=== PATIENT | male | born 1985 | race Two or more races ===

== ENCOUNTER 2019-03-02 12:17 | Emergency (ER) | payer SELFPAY ==
[2019-03-02 12:28] VITALS: BP 122/77; PULSE 69; TEMP 97.7; BMI 28.2
[2019-03-02] MEDS ORDERED: KETOROLAC TROMETHAMINE 30 MG/1 ML VIAL IVPUSH ONE (13:03)
[2019-03-02] MEDS ORDERED: SODIUM CHLORIDE 1,000 ML IV STA (13:03)
[2019-03-02] MEDS ORDERED: KETOROLAC TROMETHAMINE 30 MG/1 ML VIAL ONE (13:06)
--- NOTE | 2019-03-02 13:10 | PDOC ---
History of Present Illness - General History Source: Patient Exam Limitations: No Limitations <Sarah Thomas - Last Filed: 03/02/19 17:45> <Scottie Granados - Last Filed: 03/04/19 08:04> - General Chief Complaint: Pain Stated Complaint: KIDNEY PAIN Time Seen by Provider: 03/02/19 12:57 Past History - Past Medical History COPD: No - Psycho Social/Smoking Cessation Hx Smoking History: Never smoked <WilliamEllieSarah - Last Filed: 03/02/19 17:45> <Scottie Granados - Last Filed: 03/04/19 08:04> - Past Medical History Allergies/Adverse Reactions: Allergies Allergy/AdvReac Type Severity Reaction Status Date / Time No Known Allergies Allergy Verified 03/02/19 12:28 Home Medications: Ambulatory Orders Oxycodone HCl/Acetaminophen [Percocet 5-325 mg Tablet] 1 tab PO Q6H PRN #20 tablet MDD 4 03/02/19 Tamsulosin HCl [Flomax] 0.4 mg PO DAILY #7 capsule 03/02/19 *Physical Exam - Vital Signs Last Vital Signs Temp Pulse Resp BP Pulse Ox 97.7 F 69 18 122/77 99 03/02/19 12:24 03/02/19 12:24 03/02/19 12:24 03/02/19 12:24 03/02/19 12:24 - Physical Exam General Appearance: Yes: Mild Distress (due to pain) Respiratory/Chest: positive: Lungs Clear, Normal Breath Sounds. negative: Respiratory Distress Cardiovascular: positive: Regular Rhythm, Regular Rate, S1, S2. negative: Murmur Gastrointestinal/Abdominal: positive: Tender (mild along LLQ), Soft. negative: Distended, Guarding, Rebound Musculoskeletal: positive: CVA Tenderness (L) (mild) Integumentary: positive: Normal Color Neurologic: positive: Alert, Normal Mood/Affect <William,Sarah - Last Filed: 03/02/19 17:45> - Vital Signs Last Vital Signs Temp Pulse Resp BP Pulse Ox 97.7 F 69 18 122/77 99 03/02/19 12:24 03/02/19 12:24 03/02/19 12:24 03/02/19 12:24 03/02/19 12:24 <Scottie Granados - Last Filed: 03/04/19 08:04> ED Treatment Course - LABORATORY CBC & Chemistry Diagram: 03/02/19 13:00 03/02/19 13:00 - RADIOLOGY Radiology Studies Ordered: Category Date Time Status SPIRAL- RENAL-STONE CT [CT] Stat CT Scan 03/02/19 13:03 Ordered <Sarah Thomas - Last Filed: 03/02/19 17:45> - LABORATORY CBC & Chemistry Diagram: 03/02/19 13:00 03/02/19 13:00 - ADDITIONAL ORDERS Additional order review: 03/02/19 13:15 Urine Culture - Final Urine - Urine Clean Catch NO GROWTH OBTAINED 03/02/19 13:00 RBC 5.06 MCV 93.0 MCHC 34.0 RDW 13.3 MPV 8.8 Neutrophils % 66.0 Lymphocytes % 25.9 Monocytes % 6.3 Eosinophils % 1.6 Basophils % 0.2 - Medications Given in the ED: ED Medications Discontinued Medications Generic Name Dose Route Start Last Admin Trade Name Freq PRN Reason Stop Dose Admin Sodium Chloride 1,000 mls @ 1,000 mls/hr 03/02/19 13:03 03/02/19 13:05 Normal Saline - IV 03/02/19 14:02 1,000 mls/hr ASDIR STA Administration Ketorolac Tromethamine 30 mg 03/02/19 13:03 03/02/19 13:05 Toradol Injection - IVPUSH 03/02/19 13:04 30 mg ONCE ONE Administration <Scottie Granados - Last Filed: 03/04/19 08:04> Medical Decision Making - Medical Decision Making 34 y/o M hx of kidney stones presents with L flank/LLQ pain from today, which feels similar to his prior kidney stones. Also with slight difficulty voiding. Denies fever, sob, cp, n/v/d, dysuria, hematuria. Denies prior surgeries. Likely kidney stones Plan: Labs, IVF, Toradol, spiral CT, reassess 03/02/19 13:[address] read as negative However, on my read, noted with calcification along LLQ D/W radiologist - believes likely phlebolith and unlikely kidney stone given no hydro noted on imaging (size of phlebolith is 8 mm) D/W urology, Dr. Styles - recommends CT urogram to make sure it is not kidney stone 03/02/19 15:34 CT urogram confirms kidney stone at L UVJ 0.6x0.4 cm in size D/W urology, Dr. Littlejohn, who states patient can f/u outpatient with him, recommends flomax as well Patient currently comfortable, given urine strainer Patient stable for dc 03/02/19 17:45 <Sarah Thomas - Last Filed: 03/02/19 17:45> - Medical Decision Making The patient was seen and evaluated in conjunction with CHAY Thomas under my direct supervision, ancillary studies were reviewed. I agree with the plan as outlined by CHAY Thomas . <Scottie Granados - Last Filed: 03/04/19 08:04> Discharge - Discharge Information Problems reviewed: Yes - Admission No - Additional Discharge Information Prescription Drug Monitoring Program (I-STOP) results: I-STOP not reviewed <Sarah Thomas - Last Filed: 03/02/19 17:45> <Scottie Granados - Last Filed: 03/04/19 08:04> - Discharge Information Clinical Impression/Diagnosis: Urolithiasis Qualifiers: Urinary calculus location: ureter Qualified Code(s): N20.1 - Calculus of ureter Condition: Stable Disposition: HOME - Additional Discharge Information Prescriptions: Oxycodone HCl/Acetaminophen [Percocet 5-325 mg Tablet] 1 tab PO Q6H PRN #20 tablet MDD 4 PRN Reason: Severe Pain Tamsulosin HCl [Flomax] 0.4 mg PO DAILY #7 capsule - Follow up/Referral Referrals: Dave Littlejohn MD [Staff Physician] - Call tomorrow - Patient Discharge Instructions Patient Printed Discharge Instructions: DI for Kidney Stones Additional Instructions: Thank you for choosing [facility]. It was a pleasure taking care of you. You may take Motrin 600 mg every 6 hours by mouth as needed for mild to moderate pain. Take Motrin with food. For severe pain, you may take Percocet. This medication can make you constipated for which you may take over the counter Senna tablets as needed. This medication can also make you drowsy so please be cautious with driving or performing heavy physical work. Take Flomax daily Drink plenty of fluids - at least 2-3L daily You were given urine strainer to possibly catch the stone You were referred to urologist. Please follow-up tomorrow Return to the Emergency Department if your symptoms worsen or persist, you have fever, severe abdominal pain, vomiting or other concerning symptoms. Keyla por elegir el [facility]. Fue un placer cuidar de ti. Puede marcus Motrin 600 mg cada 6 horas por va oral segn sea necesario para el dolor leve a moderado. Neeru Motrin con comida. Para el dolor intenso, puede marcus Percocet. Miranda medicamento puede provocarle estreimiento, por lo que puede marcus tabletas Senna de venta ludivina segn sea necesario. Miranda medicamento tambin puede causar somnolencia, as que tenga cuidado al conducir o realizar trabajos fsicos pesados. [place] Flomax diariamente Leslie muchos lquidos, al menos 2-3L al da Le dieron un colador de orina para posiblemente atrapar el clculo Lo derivaron al urlogo. Por favor jorge un seguimiento maana Regrese al departamento de emergencias si tanya sntomas empeoran o persisten, tiene fiebre, dolor abdominal intenso, vmitos u otros sntomas preocupantes. Print Language: MONGOLIAN
[2019-03-02 13:33] LABS: BASO % 0.2 % (0-2.0); EOS % 1.6 % (0-4.5); HEMATOCRIT 47.1 % (35.4-49); LYMPH % 25.9 % (8-40); MCH 31.6 pg (25.7-33.7); MEAN PLT VOLUME 8.8 fl (7.5-11.1); MONO % 6.3 % (3.8-10.2); PLATELET COUNT 152 K/MM3 (134-434); RBC 5.06 M/mm3 (4.00-5.60); RDW 13.3 % (11.9-15.9); WHITE BLOOD COUNT 6.5 K/mm3 (4.0-10.0)
[2019-03-02 13:37] LABS: EPI CELLS 0.2 /HPF (0-5/HPF); HYALINE CASTS 0 /lpf (0-8); PH,URINE 5.5 (5.0-8.0); URINE APPEARANCE CLEAR; URINE BACTERIA 1.7 /hpf (NEGATIVE); URINE BILIRUBIN NEGATIVE (NEGATIVE); URINE COLOR YELLOW; URINE GLUCOSE (UA) NEGATIVE (NEGATIVE); URINE KETONE NEGATIVE (NEGATIVE); URINE LEUK ESTERASE NEGATIVE (NEGATIVE); URINE NITRITE NEGATIVE (NEGATIVE); URINE PROTEIN NEGATIVE (NEGATIVE); URINE RBC 0 /hpf (0-4); URINE UROBILINOGEN 0.2 mg/dL (0.2-1.0); URINE WBC 1 /hpf (0-5)
[2019-03-02 14:11] LABS: BILIRUBIN,TOTAL 0.3 mg/dL (0.2-1); BLOOD UREA NITROGEN 16.8 mg/dL (7-18); CALCIUM 9.2 mg/dL (8.5-10.1); CREATININE 1.1 mg/dL (0.55-1.3); POTASSIUM 4.7 mmol/L (3.5-5.1); TOT PROT 6.9 g/dl (6.4-8.2)
== END 2019-03-02 17:58 | disposition home or self-care (01) ==
LOC: JER 12:17
PROC: 3E0333Z Introduction of Anti-inflammatory into Peripheral Vein, Percutaneous Approach (ICD-10-PCS; principal; 2019-03-02)
DX: N20.1 Calculus of ureter (principal); Z87.442 Personal history of urinary calculi
CPT/HCPCS: 36415; 74176-TC; 74178-TC; 80053; 81003; 85025; 87086; 99283-25; J7030

== ENCOUNTER 2022-02-26 00:08 | Emergency (ER) | payer OTHER ==
[2022-02-26 00:34] VITALS: BMI 27.8
[2022-02-26] MEDS ORDERED: MAG HYDROX/AL HYDROX/SIMETH 30 ML UNIT-DOSE CUP PO ONE (00:36)
[2022-02-26] MEDS ORDERED: ACETAMINOPHEN 1000 MG/100 ML BAG IVPB ONE (00:36)
[2022-02-26] MEDS ORDERED: SODIUM CHLORIDE 0.9% 500 ML INFUS.BAG IV ONE (00:36)
[2022-02-26] MEDS ORDERED: FAMOTIDINE 20 MG/50 ML IVPB 20 MG/50 ML MG IVPB ONE ×3 (00:36→01:07)
[2022-02-26] MEDS ORDERED: HALOPERIDOL LACTATE 5 MG/ML IM ONE ×2 (01:01→01:06)
[2022-02-26] MEDS ORDERED: ACETAMINOPHEN INJECTION 100 ML IVPB ONE (01:06)
[2022-02-26] MEDS ORDERED: MAG HYDROX/AL HYDROX/SIMETH 30 ML UNIT-DOSE CUP ONE (01:06)
[2022-02-26] MEDS ORDERED: ONDANSETRON 4 MG/2 ML VIAL ONE (01:28)
[2022-02-26 01:49] LABS: BASO % 0.3 % (0-2.0); EOS % 0.5 % (0-4.5); HEMATOCRIT 47.9 % (35.4-49); HEMOGLOBIN 16.4 GM/dL (11.7-16.9); LYMPH % 14.1 % (8-40); MCH 32.7 pg (25.7-33.7); MCHC 34.3 g/dl (32.0-35.9); MEAN CELL VOLUME 95.3 fl (80-96); MEAN PLT VOLUME 9.3 fl (7.5-11.1); MONO % 4.7 % (3.8-10.2); NEUT % 80.4 % (42.8-82.8); PLATELET COUNT 155 10^3/uL (134-434); RBC 5.03 M/mm3 (4.00-5.60); RDW 13.9 % (11.9-15.9); WHITE BLOOD COUNT 9.6 K/mm3 (4.0-10.0)
[2022-02-26 02:28] LABS: CALCIUM 8.8 mg/dL (8.5-10.1)
[2022-02-26 02:29] LABS: ALBUMIN 3.9 g/dl (3.4-5.0); BLOOD UREA NITROGEN 13.4 mg/dL (7-18)
[2022-02-26 02:32] LABS: CREATININE 1.2 mg/dL (0.55-1.3)
[2022-02-26 02:33] LABS: BILIRUBIN,TOTAL 0.5 mg/dL (0.2-1); TOT PROT 6.9 g/dl (6.4-8.2)
[2022-02-26 04:33] VITALS: BP 117/51; PULSE 57; RESP 16; TEMP 98.2
== END 2022-02-26 05:23 | disposition home or self-care (01) ==
LOC: JER 00:08
PROC: 3E023GC Introduction of Other Therapeutic Substance into Muscle, Percutaneous Approach (ICD-10-PCS; principal; 2022-02-26)
PROC: 3E033GC Introduction of Other Therapeutic Substance into Peripheral Vein, Percutaneous Approach (ICD-10-PCS; principal; 2022-02-26)
DX: R11.10 Vomiting, unspecified (principal)
CPT/HCPCS: 36415; 71045-TC-FY; 80053; 83690; 84484; 85025; 93005; 93010; 96365; 96372; 96375; 99285-25; C9803-CS; U0003; U0005